=== PATIENT | male | born 1970 | race Two or more races ===

== ENCOUNTER 2022-05-12 17:27 | Inpatient (IN) | payer OTHER ==
[2022-05-12 18:24] VITALS: BMI 34.7
[2022-05-12] MEDS ORDERED: MAG HYDROX/AL HYDROX/SIMETH 30 ML UNIT-DOSE CUP PO PRN (19:36)
[2022-05-12] MEDS ORDERED: MAGNESIUM CITRATE 300 ML BOTTLE PO PRN (19:36)
[2022-05-12] MEDS ORDERED: ACETAMINOPHEN 325 MG TABLET (FP) PO PRN ×2 (19:36)
[2022-05-12] MEDS ORDERED: IBUPROFEN 400 MG TABLET (FP) PO PRN (19:36)
[2022-05-12] MEDS ORDERED: DICYCLOMINE HCL 10 MG CAPSULE PO PRN (19:36)
[2022-05-12] MEDS ORDERED: BISMUTH SUBSALICYLATE 524 MG/30 ML PO PRN (19:36)
[2022-05-12] MEDS ORDERED: MAGNESIUM HYDROX 2400MG/30ML ORAL SUSPENSION 30 ML CUP PO PRN (19:36)
[2022-05-12] MEDS ORDERED: LOPERAMIDE HCL 2 MG CAPSULE PO PRN (19:36)
[2022-05-12] MEDS ORDERED: hydrOXYzine PAMOATE 25 MG CAPSULE (FP) PO PRN (19:36)
[2022-05-12] MEDS ORDERED: NALOXONE HCL (KLOXXADO) 8 MG SPRAY NS PRN (19:36)
[2022-05-12] MEDS ORDERED: BENZOCAINE/MENTHOL (CHLORASEPTIC ) LOZENGE MM PRN (19:36)
[2022-05-12] MEDS ORDERED: ONDANSETRON *ODT* 4 MG TABLET SL PRN (19:36)
[2022-05-12] MEDS ORDERED: traZODone HCL 150 MG TABLET PO SCH (22:00)
[2022-05-12] MEDS: THIAMINE HCL 100 MG TABLET (FP) PO SCH (22:36)
[2022-05-12] MEDS: traZODone HCL 100 MG TABLET (FP) PO SCH (22:36)
[2022-05-12] MEDS: LORazepam 2 MG TABLET PO SCH (22:37)
[2022-05-12] MEDS: MELATONIN 5 MG TABLETS PO SCH (22:38)
[2022-05-13] MEDS: LORazepam 2 MG TABLET PO SCH ×4 (05:21→22:42)
[2022-05-13] MEDS: NICOTINE 10 MG CARTRIDGE (INHALER) IH PRN ×2 (06:15→12:20)
[2022-05-13] MEDS: LORazepam 1 MG TABLET PO PRN ×2 (07:27→13:14)
[2022-05-13] MEDS: PRENATAL VITAMINS W/ FOLIC ACID TABLET (FP) PO SCH (10:11)
[2022-05-13] MEDS: METHOCARBAMOL 500 MG TABLET PO PRN (10:11)
[2022-05-13] MEDS: amLODIPine BESYLATE 10 MG TABLET (FP) PO SCH (10:11)
[2022-05-13] MEDS: hydrOXYzine PAMOATE 25 MG CAPSULE (FP) PO PRN ×2 (10:11→17:11)
[2022-05-13 10:51] LABS: ALBUMIN 3.8 g/dl (3.4-5.0); CALCIUM 9.2 mg/dL (8.5-10.1)
[2022-05-13 10:52] LABS: BLOOD UREA NITROGEN 16.5 mg/dL (7-18)
[2022-05-13 10:54] LABS: HEMOGLOBIN 14.9 GM/dL (11.7-16.9); MCH 31.2 pg (25.7-33.7); MEAN CELL VOLUME 94.5 fl (80-96); MEAN PLT VOLUME 8.4 fl (7.5-11.1); PLATELET COUNT 316 10^3/uL (134-434); RBC 4.76 M/mm3 (4.00-5.60); RDW 13.8 % (11.9-15.9); WHITE BLOOD COUNT 7.8 K/mm3 (4.0-10.0)
[2022-05-13 10:56] LABS: BILIRUBIN,TOTAL 0.7 mg/dL (0.2-1); TOT PROT 7.1 g/dl (6.4-8.2)
[2022-05-13] MEDS ORDERED: POTASSIUM CHLORIDE ORAL LIQUID 20 MEQ/15 ML PO SCH (13:00)
[2022-05-13] MEDS: POTASSIUM CHLORIDE ORAL LIQUID 20 MEQ/15 ML PO SCH ×2 (13:13→22:42)
[2022-05-13] MEDS ORDERED: traZODone HCL 50 MG TABLET (FP) PO SCH (22:00)
[2022-05-13] MEDS: MELATONIN 5 MG TABLETS PO SCH (22:42)
[2022-05-13] MEDS: traZODone HCL 100 MG TABLET (FP) PO SCH (22:42)
[2022-05-13] MEDS: THIAMINE HCL 100 MG TABLET (FP) PO SCH (22:42)
[2022-05-14] MEDS: LORazepam 1 MG TABLET PO SCH ×4 (06:22→22:12)
[2022-05-14] MEDS: IBUPROFEN 600 MG TABLET (FP) PO PRN (06:23)
[2022-05-14] MEDS: POTASSIUM CHLORIDE ORAL LIQUID 20 MEQ/15 ML PO SCH ×2 (10:25→22:12)
[2022-05-14] MEDS: PRENATAL VITAMINS W/ FOLIC ACID TABLET (FP) PO SCH (10:25)
[2022-05-14] MEDS: amLODIPine BESYLATE 10 MG TABLET (FP) PO SCH (10:25)
[2022-05-14] MEDS: METHOCARBAMOL 500 MG TABLET PO PRN (10:25)
[2022-05-14] MEDS: hydrOXYzine PAMOATE 25 MG CAPSULE (FP) PO PRN ×3 (10:26→18:59)
[2022-05-14] MEDS: LORazepam 1 MG TABLET PO PRN ×2 (12:51→19:00)
[2022-05-14] MEDS: NICOTINE 10 MG CARTRIDGE (INHALER) IH PRN ×2 (15:02→19:35)
[2022-05-14] MEDS: THIAMINE HCL 100 MG TABLET (FP) PO SCH (22:11)
[2022-05-14] MEDS: traZODone HCL 100 MG TABLET (FP) PO SCH (22:11)
[2022-05-14] MEDS: MELATONIN 5 MG TABLETS PO SCH (22:12)
[2022-05-15] MEDS ORDERED: LORazepam 0.5 MG TABLET PO PRN
[2022-05-15] MEDS: LORazepam 0.5 MG TABLET PO SCH ×4 (06:36→22:22)
[2022-05-15] MEDS: hydrOXYzine PAMOATE 25 MG CAPSULE (FP) PO PRN ×3 (06:37→17:47)
[2022-05-15] MEDS: amLODIPine BESYLATE 10 MG TABLET (FP) PO SCH (10:31)
[2022-05-15] MEDS: PRENATAL VITAMINS W/ FOLIC ACID TABLET (FP) PO SCH (10:31)
[2022-05-15] MEDS: LISINOPRIL 5 MG TABLET PO SCH (10:31)
[2022-05-15] MEDS: METHOCARBAMOL 500 MG TABLET PO PRN (16:24)
[2022-05-15] MEDS: IBUPROFEN 600 MG TABLET (FP) PO PRN (16:24)
[2022-05-15] MEDS: NICOTINE 10 MG CARTRIDGE (INHALER) IH PRN (16:39)
[2022-05-15] MEDS: THIAMINE HCL 100 MG TABLET (FP) PO SCH (22:21)
[2022-05-15] MEDS: traZODone HCL 100 MG TABLET (FP) PO SCH (22:21)
[2022-05-15] MEDS: MELATONIN 5 MG TABLETS PO SCH (22:21)
[2022-05-16] MEDS ORDERED: LORazepam 0.5 MG TABLET PO ONE (05:00)
[2022-05-16 07:32] VITALS: RESP 18
[2022-05-16] MEDS: amLODIPine BESYLATE 10 MG TABLET (FP) PO SCH (09:19)
[2022-05-16] MEDS: hydrOXYzine PAMOATE 25 MG CAPSULE (FP) PO PRN (09:19)
[2022-05-16] MEDS: METHOCARBAMOL 500 MG TABLET PO PRN (09:19)
[2022-05-16] MEDS: LISINOPRIL 5 MG TABLET PO SCH (09:19)
[2022-05-16] MEDS: PRENATAL VITAMINS W/ FOLIC ACID TABLET (FP) PO SCH (09:20)
[2022-05-16 09:24] VITALS: BP 156/105; PULSE 76; TEMP 98.5
== END 2022-05-16 12:33 | disposition home or self-care (01) | DRG 775 ==
LOC: YASAS 17:27 → Y6N 20:34
PROVIDERS: ADMIT Allergy & Immunology; ATTEND Surgery
PROC: HZ2ZZZZ Detoxification Services for Substance Abuse Treatment (ICD-10-PCS; principal; 2022-05-12)
DX: F10.230 Alcohol dependence with withdrawal, uncomplicated (principal); F13.20 Sedative, hypnotic or anxiolytic dependence, uncomplicated; F12.20 Cannabis dependence, uncomplicated; F17.210 Nicotine dependence, cigarettes, uncomplicated; F19.282 Other psychoactive substance dependence with psychoactive substance-induced sleep disorder; F19.280 Other psychoactive substance dependence with psychoactive substance-induced anxiety disorder; F19.24 Other psychoactive substance dependence with psychoactive substance-induced mood disorder; I10 Essential (primary) hypertension; K40.90 Unilateral inguinal hernia, without obstruction or gangrene, not specified as recurrent
CPT/HCPCS: 36415; 80053; 82947; 83036; 84132; 84450; 84460; 85027; 86780; 87811; 93005; 93010; C9803-CS; U0003; U0005

== ENCOUNTER 2023-06-19 03:55 | Day surgery (SDC) | payer OTHER ==
[2023-06-18 11:41] VITALS: BMI 36.9
[2023-06-19] MEDS ORDERED: LIDOCAINE HCL/PF 1% SDV 5ML VIAL ONE (07:37)
[2023-06-19] MEDS ORDERED: BUPIVACAINE HCL/PF 0.75% 10 ML VIAL ONE (07:37)
[2023-06-19] MEDS ORDERED: ACETAMINOPHEN 500 MG TABLET (FP) PO PRN (10:53)
[2023-06-19] MEDS ORDERED: LIDOCAINE HCL 1% PRESERVATIVE FREE - 30ML VIAL IJ ONE (11:34)
[2023-06-19] MEDS ORDERED: BUPIVACAINE HCL/PF 0.75% 10 ML VIAL NR ONE (11:37)
[2023-06-19 11:59] VITALS: RESP 18
[2023-06-19 12:17] VITALS: BP 140/92; PULSE 84; TEMP 97.8
== END 2023-06-19 12:17 | disposition home or self-care (01) ==
LOC: JASU-SURG 03:55
PROVIDERS: ATTEND Pain Medicine Pain Medicine
PROC: 3E0T33Z Introduction of Anti-inflammatory into Peripheral Nerves and Plexi, Percutaneous Approach (ICD-10-PCS; 2023-06-19)
PROC: 3E0T3BZ Introduction of Anesthetic Agent into Peripheral Nerves and Plexi, Percutaneous Approach (ICD-10-PCS; principal; 2023-06-19 11:30)
DX: M47.816 Spondylosis without myelopathy or radiculopathy, lumbar region (principal)
CPT/HCPCS: 76000-TC-FY

== ENCOUNTER 2024-10-05 16:36 | Inpatient (IN) | payer OTHER ==
[2024-10-05 15:35] VITALS: BMI 36.5
[~2024-10-05 16:36] MED LIST: chlordiazePOXIDE HCL 25 MG CAPSULE PO PRN
[2024-10-05] MEDS ORDERED: chlordiazePOXIDE HCL 25 MG CAPSULE PO SCH (17:00)
[2024-10-05] MEDS ORDERED: ONDANSETRON *ODT* 4 MG TABLET SL PRN (17:07)
[2024-10-05] MEDS ORDERED: LOPERAMIDE HCL 2 MG CAPSULE PO PRN (17:07)
[2024-10-05] MEDS ORDERED: NICOTINE POLACRILEX 2 MG LOZENGE BC PRN (17:07)
[2024-10-05] MEDS ORDERED: BISMUTH SUBSALICYLATE 524 MG/30 ML PO PRN (17:07)
[2024-10-05] MEDS ORDERED: MAG HYDROX/AL HYDROX/SIMETH 30 ML UNIT-DOSE CUP PO PRN (17:07)
[2024-10-05] MEDS ORDERED: NALOXONE (NARCAN) HCL 4 MG/0.1 ML SPRAY NS PRN (17:07)
[2024-10-05] MEDS ORDERED: POLYETHYLENE GLYCOL (HEALTHYLAX) 3350 17 GM PACKET PO PRN (17:07)
[2024-10-05] MEDS ORDERED: guaiFENesin 600 MG TABLET.ER (FP) PO PRN (17:07)
[2024-10-05] MEDS ORDERED: BENZONATATE 200 MG CAPSULE PO PRN (17:07)
[2024-10-05] MEDS ORDERED: BENZOCAINE/MENTHOL (CHLORASEPTIC ) LOZENGE MM PRN (17:07)
[2024-10-05] MEDS ORDERED: DICYCLOMINE HCL 10 MG CAPSULE PO PRN (17:07)
[2024-10-05] MEDS ORDERED: MAGNESIUM HYDROX 2400MG/30ML ORAL SUSPENSION 30 ML CUP PO PRN (17:07)
[2024-10-05] MEDS ORDERED: ACETAMINOPHEN 325 MG TABLET (FP) PO PRN (17:07)
[2024-10-05] MEDS ORDERED: IBUPROFEN 400 MG TABLET (FP) PO PRN (17:07)
[2024-10-05] MEDS ORDERED: IBUPROFEN 600 MG TABLET (FP) PO PRN (17:07)
[2024-10-05] MEDS ORDERED: NICOTINE POLACRILEX 2 MG GUM BUC PRN (17:07)
[2024-10-05] MEDS ORDERED: hydrOXYzine PAMOATE 25 MG CAPSULE (FP) PO ONE (19:00)
[2024-10-05] MEDS ORDERED: METOPROLOL TARTRATE 25 MG TABLET (FP) ONE (19:33)
[2024-10-05] MEDS: hydrOXYzine PAMOATE 25 MG CAPSULE (FP) PO PRN (19:34)
[2024-10-05] MEDS: METOPROLOL TARTRATE 25 MG TABLET (FP) PO ONE (19:34)
[2024-10-05] MEDS: chlordiazePOXIDE HCL 25 MG CAPSULE PO ONE (20:39)
[2024-10-05] MEDS: MELATONIN 5 MG TABLETS PO SCH (21:54)
[2024-10-05] MEDS: THIAMINE 100 MG TABLET PO SCH (21:54)
[2024-10-05] MEDS: METHOCARBAMOL 500 MG TABLET PO PRN (22:17)
[2024-10-05] MEDS: chlordiazePOXIDE HCL 25 MG CAPSULE PO SCH (23:26)
[2024-10-06] MEDS: METOPROLOL TARTRATE 25 MG TABLET (FP) PO ONE (09:27)
[2024-10-06] MEDS: SERTRALINE HCL 50 MG TABLET (FP) PO SCH (10:21)
[2024-10-06] MEDS: PRENATAL VITAMINS W/ FOLIC ACID TABLET (FP) PO SCH (10:21)
[2024-10-06] MEDS: LOSARTAN POTASSIUM 50 MG TABLET PO SCH (10:21)
[2024-10-06] MEDS: amLODIPine BESYLATE 10 MG TABLET (FP) PO SCH (10:21)
[2024-10-06 10:55] LABS: HEMOGLOBIN 13.8 g/dL (13.7-17.5); MCHC 33.7 g/dl (32.3-36.5); MEAN CELL VOLUME 90.7 fl (79.0-92.2); MEAN PLT VOLUME 11.2 fl (9.4-12.4); PLATELET COUNT # 114 x10^3/uL (163-337); RDW 13.2 % (12.2-16.1)
[2024-10-06 11:41] LABS: ALBUMIN 3.6 g/dl (3.4-5.0); BILIRUBIN,TOTAL 0.8 mg/dL (0.2-1); BLOOD UREA NITROGEN 5.8 mg/dL (7-18); CALCIUM 9.2 mg/dL (8.5-10.1); CREATININE 0.9 mg/dL (0.55-1.3); POTASSIUM 3.2 mmol/L (3.5-5.1); TOT PROT 6.9 g/dl (6.4-8.2)
[2024-10-06] MEDS: cloNIDine HCL 0.1 MG TABLET PO PRN (14:43)
[2024-10-06] MEDS: POTASSIUM CHLORIDE ORAL LIQUID 20 MEQ/15 ML PO ONE (14:43)
[2024-10-06] MEDS: traZODone HCL 100 MG TABLET (FP) PO SCH (22:10)
[2024-10-07] MEDS ORDERED: chlordiazePOXIDE HCL 25 MG CAPSULE PO SCH (05:00)
[2024-10-07] MEDS: chlordiazePOXIDE HCL 25 MG CAPSULE PO SCH (05:23)
[2024-10-07 11:05] LABS: POTASSIUM 3.1 mmol/L (3.5-5.1)
[2024-10-07 11:14] LABS: CALCIUM 9.2 mg/dL (8.5-10.1)
[2024-10-07 11:15] LABS: BLOOD UREA NITROGEN 7.6 mg/dL (7-18)
[2024-10-07 11:18] LABS: CREATININE 0.8 mg/dL (0.55-1.3)
[2024-10-07] MEDS ORDERED: POTASSIUM CHLORIDE ORAL LIQUID 20 MEQ/15 ML PO ONE ×2 (12:04→19:00)
[2024-10-07] MEDS: POTASSIUM CHLORIDE ORAL LIQUID 20 MEQ/15 ML PO ONE ×2 (14:53→20:22)
[2024-10-07] MEDS: hydrOXYzine PAMOATE 25 MG CAPSULE (FP) PO ONE (15:39)
[2024-10-07] MEDS: chlordiazePOXIDE HCL 25 MG CAPSULE PO PRN (20:21)
[2024-10-08] MEDS ORDERED: chlordiazePOXIDE HCL 10 MG CAPSULE PO PRN
[2024-10-08] MEDS ORDERED: chlordiazePOXIDE HCL 10 MG CAPSULE PO SCH (05:00)
[2024-10-08] MEDS: chlordiazePOXIDE HCL 10 MG CAPSULE PO SCH (05:21)
[2024-10-08] MEDS: hydrOXYzine PAMOATE 25 MG CAPSULE (FP) PO PRN (13:07)
[2024-10-08] MEDS: chlordiazePOXIDE HCL 10 MG CAPSULE PO PRN (13:07)
[2024-10-08] MEDS: ASPIRIN COATED 81 MG TABLET.EC PO SCH (21:55)
[2024-10-08] MEDS: traZODone HCL 100 MG TABLET (FP) PO SCH (22:23)
[2024-10-08] MEDS: cloNIDine HCL 0.1 MG TABLET PO ONE (23:48)
[2024-10-09] MEDS ORDERED: chlordiazePOXIDE HCL 10 MG CAPSULE PO SCH (05:00)
[2024-10-09] MEDS: chlordiazePOXIDE HCL 10 MG CAPSULE PO SCH (05:20)
[2024-10-09 09:04] LABS: POTASSIUM 3.8 mmol/L (3.5-5.1)
[2024-10-09 09:21] LABS: CALCIUM 8.9 mg/dL (8.5-10.1)
[2024-10-09 09:22] LABS: BLOOD UREA NITROGEN 12.2 mg/dL (7-18)
[2024-10-09 09:25] LABS: CREATININE 0.7 mg/dL (0.55-1.3)
[2024-10-09] MEDS: cloNIDine HCL 0.1 MG TABLET PO ONE (22:19)
[2024-10-10] MEDS ORDERED: chlordiazePOXIDE HCL 10 MG CAPSULE PO ONE (05:00)
[2024-10-10] MEDS: chlordiazePOXIDE HCL 10 MG CAPSULE PO ONE (06:00)
[2024-10-10 13:13] VITALS: BP 137/94; PULSE 77; RESP 17; TEMP 98
== END 2024-10-10 11:42 | disposition other institution (70) | DRG 775 ==
LOC: YASAS 16:36 → Y3N 19:17
PROVIDERS: ADMIT Allergy & Immunology; ATTEND Allergy & Immunology
PROC: HZ2ZZZZ Detoxification Services for Substance Abuse Treatment (ICD-10-PCS; principal; 2024-10-05)
DX: F10.230 Alcohol dependence with withdrawal, uncomplicated (principal); F17.210 Nicotine dependence, cigarettes, uncomplicated; F33.0 Major depressive disorder, recurrent, mild; F41.8 Other specified anxiety disorders; E87.6 Hypokalemia; I10 Essential (primary) hypertension; R73.9 Hyperglycemia, unspecified; R74.01 Elevation of levels of liver transaminase levels
CPT/HCPCS: 36415; 80048; 80053; 80305; 80307; 83036; 85027; 86780; 87811; 93005; 93010

== ENCOUNTER 2024-10-10 11:42 | Inpatient (IN) | payer OTHER ==
[2024-10-10] MEDS ORDERED: POLYETHYLENE GLYCOL (HEALTHYLAX) 3350 17 GM PACKET PO PRN (14:21)
[2024-10-10] MEDS ORDERED: ACETAMINOPHEN 325 MG TABLET (FP) PO PRN (14:21)
[2024-10-10] MEDS ORDERED: IBUPROFEN 400 MG TABLET (FP) PO PRN (14:21)
[2024-10-10] MEDS ORDERED: NALOXONE HCL 0.4 MG/ML VIAL IVPUSH PRN (14:21)
[2024-10-10] MEDS ORDERED: BENZOCAINE/MENTHOL (CHLORASEPTIC ) LOZENGE MM PRN (14:21)
[2024-10-10] MEDS ORDERED: BENZONATATE 200 MG CAPSULE PO PRN (14:21)
[2024-10-10] MEDS ORDERED: NALOXONE (NARCAN) HCL 4 MG/0.1 ML SPRAY NS PRN (14:21)
[2024-10-10] MEDS ORDERED: MAG HYDROX/AL HYDROX/SIMETH 30 ML UNIT-DOSE CUP PO PRN (14:21)
[2024-10-10] MEDS ORDERED: guaiFENesin 600 MG TABLET.ER (FP) PO PRN (14:21)
[2024-10-10] MEDS ORDERED: LOPERAMIDE HCL 2 MG CAPSULE PO PRN (14:21)
[2024-10-10] MEDS ORDERED: IBUPROFEN 600 MG TABLET (FP) PO PRN (14:21)
[2024-10-10] MEDS: hydrOXYzine PAMOATE 25 MG CAPSULE (FP) PO PRN (16:39)
[2024-10-10] MEDS: METHOCARBAMOL 500 MG TABLET PO PRN (16:39)
[2024-10-10] MEDS: THIAMINE 100 MG TABLET PO SCH (21:42)
[2024-10-10] MEDS: traZODone HCL 50 MG TABLET (FP) PO SCH (21:42)
[2024-10-10] MEDS: MELATONIN 5 MG TABLETS PO SCH (21:42)
[2024-10-11] MEDS: SERTRALINE HCL 50 MG TABLET (FP) PO SCH (10:30)
[2024-10-11] MEDS: GABAPENTIN 100 MG CAPSULE PO SCH (10:30)
[2024-10-11] MEDS: amLODIPine BESYLATE 10 MG TABLET (FP) PO SCH (10:30)
[2024-10-11] MEDS: LOSARTAN POTASSIUM 50 MG TABLET PO SCH (10:30)
[2024-10-11] MEDS: ASPIRIN COATED 81 MG TABLET.EC PO SCH (10:30)
[2024-10-11] MEDS: NICOTINE 21 MG/24 HOURS TOPICAL PATCH TD SCH (10:31)
[2024-10-11] MEDS: PRENATAL VITAMINS W/ FOLIC ACID TABLET (FP) PO SCH (11:00)
[2024-10-12] MEDS: hydrOXYzine PAMOATE 50 MG CAPSULE (FP) PO PRN (05:25)
[2024-10-12] MEDS: GABAPENTIN 300 MG CAPSULE PO SCH (10:35)
[2024-10-12] MEDS: NALTREXONE HCL 50 MG TABLET PO ONE (17:22)
[2024-10-13] MEDS: LOSARTAN POTASSIUM 50 MG TABLET PO SCH (10:11)
[2024-10-13] MEDS: NICOTINE POLACRILEX 4 MG GUM BUC PRN (21:56)
[2024-10-16] MEDS ORDERED: HYDROCORTISONE 0.5% TOPICAL OINTMENT TUBE TP PRN (11:00)
[2024-10-16] MEDS: HYDROCORTISONE 0.5% TOPICAL CREAM 30 GM TUBE TP PRN (14:27)
[2024-10-17] MEDS: MAGNESIUM HYDROX 2400MG/30ML ORAL SUSPENSION 30 ML CUP PO PRN (17:43)
[2024-10-18] MEDS: hydrOXYzine PAMOATE 50 MG CAPSULE (FP) PO PRN (13:53)
[2024-10-18] MEDS: DOCUSATE SODIUM 100 MG CAPSULE (FP) PO SCH (21:27)
[2024-10-18] MEDS ORDERED: DOCUSATE SODIUM 100 MG CAPSULE (FP) PO SCH (22:00)
[2024-10-20] MEDS: cloNIDine HCL 0.1 MG TABLET PO SCH (10:41)
[2024-10-21] MEDS: cloNIDine HCL 0.1 MG TABLET PO ONE (10:21)
[2024-10-21] MEDS: NICOTINE POLACRILEX 4 MG LOZENGE BC PRN (10:23)
[2024-10-21] MEDS: cloNIDine HCL 0.1 MG TABLET PO SCH (18:03)
[2024-10-23 22:08] VITALS: RESP 18
[2024-10-24 06:04] VITALS: PULSE 72; TEMP 97.5
[2024-10-24 12:33] VITALS: BP 152/80
== END 2024-10-24 09:48 | disposition home or self-care (01) | DRG 772 ==
LOC: YASAS 11:42 → Y3W 11:44
PROVIDERS: ADMIT Psychiatry & Neurology Pain Medicine; ATTEND Psychiatry & Neurology Pain Medicine
PROC: HZ42ZZZ Group Counseling for Substance Abuse Treatment, Cognitive-Behavioral (ICD-10-PCS; principal; 2024-10-10)
DX: F10.24 Alcohol dependence with alcohol-induced mood disorder (principal); F10.20 Alcohol dependence, uncomplicated; F17.210 Nicotine dependence, cigarettes, uncomplicated; F10.282 Alcohol dependence with alcohol-induced sleep disorder; F19.280 Other psychoactive substance dependence with psychoactive substance-induced anxiety disorder; F19.282 Other psychoactive substance dependence with psychoactive substance-induced sleep disorder; F19.24 Other psychoactive substance dependence with psychoactive substance-induced mood disorder; F33.0 Major depressive disorder, recurrent, mild; F41.8 Other specified anxiety disorders; I10 Essential (primary) hypertension; R21 Rash and other nonspecific skin eruption